=== PATIENT | female | born 1945 | race Caucasian/White ===

== ENCOUNTER → 2017-07-20 | Outpatient (CLI) | payer MEDICARE, BC ==
[2015-10-08 05:43] VITALS: BP 112/55
[~2017-07-20] MED LIST: ASPI-482 PO; CHOL100014 PO; CYAN2500 PO; FISH1CAP PO; LOSA1TAB18 PO; METO25TA9 PO; MULT-212 PO; MULT-658 PO; OXYC-323 PO; PRAS25TA PO; PRAV40TA2 PO; PREGNENOLONE PO; PROG100C15 PO; WARF1TAB74 PO; [UNRECOGNIZED DRUG - CODE] PO
--- NOTE | 2017-07-21 09:07 | RAD ---
DATE: 07/21/2017 EXAM: MAMMO HENRY SCREENING BILATERAL HISTORY: 71-year-old female for routine screening. History of left breast biopsy with benign pathology in 1979. COMPARISON: Previous mammogram from 2015 and 2014 This study was interpreted with the benefit of Computerized Aided Detection (CAD). FINDINGS: Breast Density: HETERO The breast parenchyma Is heterogeneiously dense, which could reduce sensitivity of mammography. Breast parenchyma level C. Stable scattered nodular densities in the right breast. The skin and nipples are within normal limits. No suspicious calcifications, spiculated mass or architectural distortion. IMPRESSION: No mammographic evidence of malignancy. Stable mammogram. BI-RADS CATEGORY: 2 BENIGN FINDING(S) RECOMMENDED FOLLOW-UP: 12M 12 MONTH FOLLOW-UP PQRS compliance statement: Patient information was entered into a reminder system with a target due date 07/20/2018 for the next mammogram. Mammography is a sensitive method for finding small breast cancers, but it does not detect them all and is not a substitute for careful clinical examination. A negative mammogram does not negate a clinically suspicious finding and should not result in delay in biopsying a clinically suspicious abnormality. "Our facility is accredited by the [employer] Mammography Program."
== END | disposition home or self-care (01) ==
LOC: KCIC MAMMO 14:48
PROVIDERS: ATTEND Family Medicine
DX: Z12.31 Encounter for screening mammogram for malignant neoplasm of breast (principal)
CPT/HCPCS: 77063; G0202; 77067

== ENCOUNTER → 2017-07-25 | Outpatient (CLI) | payer MEDICARE, BC ==
[2015-10-08 05:43] VITALS: BP 112/55
--- NOTE | 2017-07-26 13:56 | KCIC ---
Examination: Coronary calcium score CT chest without contrast History: Hyperlipidemia, prediabetes, hypertension, screening, family history of heart disease. Technique: With retrospective electrocardiogram gating 2.5 mm thick axial reconstructed noncontrast images of the chest at the level of the coronary arteries was performed. Images were post processed on a [employer] workstation and calcium score calculated using the modified Agatston Janowitz protocol. PQRS STATEMENT: One or more of the following in the visualized dose reduction techniques were utilized for this study: 1. Automatic exposure control, 2. Adjustment of the mA and/or kV according to patient size, 3. Use of iterative reconstruction technique Findings: Total coronary calcium score is 0.This is based on the calcium score of 0 of the left main coronary artery, 0 of the left anterior descending artery, score of 0 of the left circumflex artery and score of 0 of the right coronary artery. Noncoronary findings demonstrate a 6 mm nodule identified in the left lower lobe of the lung peripherally. A smaller 5 mm nodule identified in the left lower lobe of the lung peripherally. Impression: 1. Total calcium score is 0. 2. A 6 mm and is 5 mm nodule identified in the left lower lobe of the lung. Follow-up per Fleischner Society guidelines with follow-up CT in 6-12 months. Electronically signed by: Florencio Mills MD (07/26/2017 1:52 PM) [facility]
== END | disposition home or self-care (01) ==
LOC: KCIC CT 08:11
PROVIDERS: ATTEND Family Medicine
DX: R91.1 Solitary pulmonary nodule (principal); E78.5 Hyperlipidemia, unspecified; I10 Essential (primary) hypertension; Z82.49 Family history of ischemic heart disease and other diseases of the circulatory system
CPT/HCPCS: 75571

== ENCOUNTER → 2018-03-06 | Outpatient (CLI) | payer MEDICARE, BC | END | disposition home or self-care (01) | LOC: KCIC CT 10:13 | DX: R91.1 Solitary pulmonary nodule (principal); R91.8 Other nonspecific abnormal finding of lung field; I10 Essential (primary) hypertension; E11.9 Type 2 diabetes mellitus without complications; Z87.891 Personal history of nicotine dependence | CPT/HCPCS: 71250 ==

== ENCOUNTER → 2018-08-06 | Outpatient (CLI) | payer MEDICARE, BC ==
[2015-10-08 05:43] VITALS: BP 112/55
[~2018-08-06] MED LIST changes: -LOSA1TAB18 PO; +LOSA1TAB25 PO; +METO-239 PO; -METO25TA9 PO
--- NOTE | 2018-08-06 14:01 | KCIC ---
Bone densitometry 08/06/2018 9:38 AM Indication: LOSS OF HEIGHT, POST MENOPAUSAL, SCREENING FOR OSTEOPOROSIS Comparison Study: None available. Discussion: Bone Densitometry was performed with dual photon absorption of the lumbar spine and left proximal femur. Lumbar Spine: Bone average density is 1.1g/cm2 for L1-L4. T-Score is 0.5. Left femoral neck: Bone average density is 0.855g/cm2. T-Score is -0.7. IMPRESSION: Bone mineral density of the lumbar spine and left femoral neck are within normal limits Note: Definitions established by the World Health Organization: Normal: T-score is -1.0 or above. Osteopenia: T-score is between -1.0 and -2.5. Osteoporosis: T-score is -2.5 or below. Electronically signed by: Leo Jacobson MD (08/06/2018 1:58 PM) [facility]
== END | disposition home or self-care (01) ==
LOC: KCIC DEXA 08:44
PROVIDERS: ATTEND Family Medicine
DX: Z13.820 Encounter for screening for osteoporosis (principal); I10 Essential (primary) hypertension; E11.9 Type 2 diabetes mellitus without complications; E78.5 Hyperlipidemia, unspecified; E78.00 Pure hypercholesterolemia, unspecified; M16.11 Unilateral primary osteoarthritis, right hip; K21.9 Gastro-esophageal reflux disease without esophagitis; D25.9 Leiomyoma of uterus, unspecified; Z78.0 Asymptomatic menopausal state; Z87.891 Personal history of nicotine dependence; Z82.49 Family history of ischemic heart disease and other diseases of the circulatory system; Z80.9 Family history of malignant neoplasm, unspecified; Z79.01 Long term (current) use of anticoagulants
CPT/HCPCS: 77080

== ENCOUNTER → 2019-01-28 | Outpatient (CLI) | payer MEDICARE, BC ==
[2015-10-08 05:43] VITALS: BP 112/55
[~2019-01-28] MED LIST changes: +ACET-1550 PO; +IOHEXOL 240 MG/ML 50ML VIAL. PO ONE; +IOHEXOL 300 MG/ML 100ML VIAL. IV ONE; +LACT1CAP8 PO; +MELA3TAB2 PO; +METH-39 PO; +OXYB5TAB7 PO; -OXYC-323 PO; +OXYC1TAB15 PO; +PROG200C15 PO; +TRAM50TA PO; +compound cream TP
--- NOTE | 2019-01-28 14:17 | KCIC ---
EXAM: Left breast diagnostic mammogram; left breast sonogram. HISTORY: 73-year-old female presents for 6 month follow-up evaluation of benign-appearing lesions within the left breast demonstrated on a sonogram dated 2017. TECHNIQUE: Full-field digital craniocaudal, rolled craniocaudal, true lateral and mediolateral oblique views of the left breast are obtained for evaluation. Sonographic imaging of the left breast targeted to sites of prior concern was also performed. COMPARISON: 08/13/2018, 07/30/2018, 07/20/2017 and 07/20/2016 BREAST PARENCHYMAL DENSITY: Level C - Heterogeneously dense. FINDINGS: There is no new suspicious mass, calcification or distortion within the left breast, allowing for differences in patient positioning and compression technique. There is stable nodularity within the posterior lateral aspect of the left breast compared to studies dating to 07/20/2016. There are few benign calcifications. Sonographic imaging of the left breast demonstrates a stable lipoma at the 12:00 position 2 cm from the nipple measuring 10 mm. There is a stable 7 mm suspected complicated cyst at the 11:00 position 1 cm from the nipple. There is a stable suspected complicated cyst or focally dilated ducts at the 12:00 retroareolar location. There is no new suspicious sonographic finding. IMPRESSION: 1. No new suspicious no mammographic or sonographic finding within the left breast. 2. BI-RADS Category 2: Benign finding(s). RECOMMENDATION: The patient will be due for bilateral mammography in 6 months according to a previously established bilateral mammography interval. If your mammogram demonstrates that you have dense breast tissue, which could hide abnormalities, and if you have other risk factors for breast cancer that have been identified, you might benefit from supplemental screening tests that may be suggested by your ordering physician. Dense breast tissue, in and of itself, is a relatively common condition. This information is not provided to cause undue concern, but rather to raise your awareness and to promote discussion with your physician regarding the presence of other risk factors, in addition to dense breast tissue. A report of your mammography results will be sent to you and your physician. You should contact your physician if you have any questions or concerns regarding this report. Mammography is a sensitive method for finding small breast cancers, but it does not detect them all and is not a substitute for careful clinical examination. A negative mammogram does not negate a clinically suspicious finding and should not result in delay in biopsying a clinically suspicious abnormality. PQRS compliance statement - Patient information was entered into a reminder system with a target due date for the next mammogram. "Our facility is accredited by the [employer] Mammography Program." Electronically signed by: Beverly Wilkerson MD (01/28/2019 2:14 PM) [facility]
--- NOTE | 2019-01-28 14:19 | KCIC ---
EXAM: CT Abdomen and Pelvis with IV contrast CLINICAL HISTORY: Abdominal pain.-Right upper quadrant COMPARISON: CT chest 03/06/2018 TECHNIQUE: Helical CT of the abdomen and pelvis was performed following the administration of intravenous contrast. Axial, coronal and sagittal reformatted images were generated. PQRS compliance statement - One or more of the following individualized dose reduction techniques were utilized for this study: 1. Automated exposure control 2. Adjustment of the mA and/or kV according to patient size 3. Use of iterative reconstruction technique FINDINGS: Lower chest: Calcified granuloma right lower lobe. 4 mm left lower lobe lung nodule (series 2 image 11). Abdomen and Pelvis: Diffuse hepatic hypoattenuation may be seen with hepatic steatosis. No focal liver lesion. Gallbladder is normal. Common bile duct measures up to 9 mm in diameter. Spleen is unremarkable. Adrenal glands and pancreas are unremarkable. Symmetric nephrograms. Subcentimeter hypodense right upper pole renal lesion is too small to accurately characterize. There is mild right hydronephrosis and hydroureter. The right ureter is only seen to the level of the pelvis is streak artifact from the right hip arthroplasty limits evaluation of the distal portion of the ureter and bladder. No left hydronephrosis or hydroureter. Moderate colonic stool content is seen. Colonic diverticulosis without evidence for acute diverticulitis. No small or large bowel dilatation suggest bowel obstruction. Appendix is normal. Small fat-containing periumbilical hernia. No abdominal or pelvic ascites. No definite lymphadenopathy. Bones: Right total hip arthroplasty is seen. Degenerative changes of the spine are noted. IMPRESSION: 1. Comment mild dilation measures up to 9 mm greater than expected for this patient's age. This can be correlated with patient's lab values and if clinically indicated MRI/MRCP may provide additional details. 2. Mild right hydronephrosis and hydroureter, of uncertain clinical significance. Of note the distal right ureter to is obscured by artifact from the right hip arthroplasty. No definite calculus within the visualized renal collecting system. 3. 4 mm left lower lobe lung nodule is seen. This is stable to 03/06/2018. 4. Fatty liver 5. Colonic diverticulosis without evidence for acute diverticulitis. Electronically signed by: Hamzah Hay MD (01/28/2019 2:15 PM) [facility]
== END | disposition home or self-care (01) ==
LOC: KCIC CT 09:27
PROVIDERS: ATTEND Nurse Practitioner Family
DX: N13.39 Other hydronephrosis (principal); N13.4 Hydroureter; K76.0 Fatty (change of) liver, not elsewhere classified; R91.1 Solitary pulmonary nodule; K57.30 Diverticulosis of large intestine without perforation or abscess without bleeding; K42.9 Umbilical hernia without obstruction or gangrene; J84.10 Pulmonary fibrosis, unspecified; I10 Essential (primary) hypertension; E11.9 Type 2 diabetes mellitus without complications; R92.8 Other abnormal and inconclusive findings on diagnostic imaging of breast
CPT/HCPCS: 74177; 76641; 77065; 82565; Q9966; Q9967

== ENCOUNTER → 2019-02-11 | Outpatient (CLI) | payer MEDICARE, BC ==
[2015-10-08 05:43] VITALS: BP 112/55
[~2019-02-11] MED LIST changes: -IOHEXOL 240 MG/ML 50ML VIAL. PO ONE; -IOHEXOL 300 MG/ML 100ML VIAL. IV ONE
--- NOTE | 2019-02-11 10:16 | KCIC ---
Indication: Abnormal CT. Common bile duct dilation seen on previous CT. Right-sided abdominal pain for several months. TECHNIQUE: MRI and MRCP of the abdomen without IV contrast with MIP reconstruction. COMPARISON: CT of abdomen pelvis from 01/28/2019. FINDINGS: Heart is normal in size. No pericardial or pleural effusion. Diffuse hepatic steatosis. No abnormal T1 or T2 lesion seen in the liver. Spleen is nonenlarged. No gallstones. Layering sludge or concentrated bile is seen in the gallbladder. No pericholecystic fluid or inflammatory changes. No intra or extrahepatic biliary duct dilation. CBD measures 5 mm in diameter in the distal segment with small distal tapering without internal filling defects. Intrinsic T1 signal is preserved in the pancreas. Main pancreatic duct is nondilated. No pancreatic or peripancreatic inflammatory changes. Adrenal glands demonstrate no nodularity. 1.8 x 1.1 cm, and hepatic artery lymph node is seen. No hydronephrosis. No bowel obstruction. IMPRESSION: 1. No abnormal dilation of CBD seen. No choledocholithiasis. If there are symptoms of obstructive jaundice further evaluation with ERCP may be of additional benefit. 2. Hepatic steatosis. Electronically signed by: Perry Rizo DO (02/11/2019 10:13 AM) [facility]
== END | disposition home or self-care (01) ==
LOC: KCIC MRI 08:25
PROVIDERS: ATTEND Internal Medicine Gastroenterology
DX: K76.0 Fatty (change of) liver, not elsewhere classified (principal); K83.1 Obstruction of bile duct
CPT/HCPCS: 74181

== ENCOUNTER → 2019-02-25 | Outpatient (CLI) | payer MEDICARE, BC ==
[2015-10-08 05:43] VITALS: BP 112/55
[~2019-02-25] MED LIST changes: +SINCALIDE 1.51 MCG in IV NORMAL SALINE 50ML 30 ML IV ONE
--- NOTE | 2019-02-25 08:43 | RAD ---
Right upper quadrant abdominal ultrasound, 02/25/2019: HISTORY: Epigastric pain The gallbladder is within normal limits in size. There is no sonographic evidence of cholelithiasis. The gallbladder wall is not thickened. The common hepatic duct measures 6 mm which is at the upper limits of normal. No intrahepatic bile duct dilatation is seen. The hepatic echogenicity is generally increased, most commonly due to fatty change. No hepatic mass is evident. The visualized portions of the right kidney and pancreas are unremarkable. IMPRESSION: 1. No gallbladder abnormality is detected. 2. The common hepatic duct is at the upper limits of normal. 3. Hepatic steatosis. Electronically signed by: Lavelle Paredes MD (02/25/2019 8:40 AM) [facility]
--- NOTE | 2019-02-25 11:46 | RAD ---
Radionuclide hepatobiliary scan, 02/25/2019: HISTORY: Right upper quadrant pain Following IV injection of 5.5 mCi of technetium 99m Choletec there was prompt uptake of the radionuclide from the blood stream by the liver. Bile duct and small bowel activity is present at 5 minutes. Gallbladder activity developed at 15 minutes. Additional imaging was then performed following IV injection of 1.5 mcg of cholecystokinin. There is good gallbladder emptying with the gallbladder ejection fraction calculated at 86 percent. IMPRESSION: 1. Normal radionuclide hepatobiliary scan. 2. The gallbladder ejection fraction is 86 percent. Electronically signed by: Lavelle Paredes MD (02/25/2019 11:43 AM) [facility]
== END | disposition home or self-care (01) ==
LOC: US 14:42
PROVIDERS: ATTEND Internal Medicine Gastroenterology
DX: K76.0 Fatty (change of) liver, not elsewhere classified (principal)
CPT/HCPCS: 76705; 78227; A9537; J2805

== ENCOUNTER 2019-03-10 08:48 | Day surgery (SDC) | payer MEDICARE, BC ==
[~2019-03-10] VITALS: Ht 162.6 cm; Wt 74.8 kg
[~2019-03-10 08:48] MED LIST changes: +BUPIVAC MPF-EPI 0.5%-1:200000 30 ML VIAL. ONE; +GLUCAGON,HUMAN RECOMBINANT 1 MG/ML VIAL. ONE; +IOHEXOL 300 MG/ML 100ML VIAL. ONE; +IV RINGERS,LACTATED 1000ML 1,000 ML IV SCH; +LIDOCAINE 1% PF 2 ML VIAL. ID PRN; -MELA3TAB2 PO; +ONDANSETRON PF 4 MG/2 ML VIAL. IV PRN; +PROCHLORPERAZINE 10 MG/2 ML VIAL. IV PRN; -SINCALIDE 1.51 MCG in IV NORMAL SALINE 50ML 30 ML IV ONE; +SURGICEL HEMOSTAT 4X8 EACH. ONE; -TRAM50TA PO; +fentaNYL PF VIAL 100 MCG/2 ML VIAL IV PRN
[2019-03-10] MEDS ORDERED: ROCURONIUM 50 MG/5 ML VIAL. ONE (09:11)
[2019-03-10] MEDS ORDERED: SEVOFLURANE 61 TO 120 MINUTES. IH ONE (09:11)
[2019-03-10] MEDS ORDERED: DEXAMETHASONE SOD PHOS 20 MG/5 ML VIAL. ONE (09:11)
[2019-03-10] MEDS ORDERED: PROPOFOL 20 ML IV ONE (09:11)
[2019-03-10] MEDS ORDERED: LIDOCAINE 2% PF 5 ML VIAL. ONE (09:11)
[2019-03-10] MEDS ORDERED: ONDANSETRON PF 4 MG/2 ML VIAL. ONE (09:11)
[2019-03-10] MEDS ORDERED: fentaNYL PF VIAL 100 MCG/2 ML VIAL ONE (09:11)
[2019-03-10] MEDS ORDERED: MELA3TAB2 PO (09:19)
[2019-03-10 09:45] LABS: CREATININE 0.9 mg/dL (0.6-1.0); GFR 61.7; POTASSIUM 3.3 mmol/L (3.5-5.1)
[2019-03-10 09:51] LABS: ALBUMIN 3.9 g/dL (3.4-5.0); TOTAL BILIRUBIN 1.1 mg/dL (0.2-1.0)
[2019-03-10] MEDS ORDERED: SCOPOLAMINE 1.5MG PATCH. TD SCH (10:00)
[2019-03-10 10:10] LABS: BASO # 0.1 x10^3/uL (0.0-0.2); BASO % 1 % (0-3); EOS # 0.3 x10^3/uL (0.0-0.7); EOS % 6 % (0-3); HEMATOCRIT 39.5 % (36.0-47.0); HEMOGLOBIN 14.1 g/dL (12.0-15.5); LYMPH # 1.5 x10^3/uL (1.0-4.8); LYMPH % 26 % (24-48); MEAN CORPUSCULAR HEMOGLOBIN 30 pg (25-35); MEAN CORPUSCULAR HGB CONC 36 g/dL (31-37); MEAN CORPUSCULAR VOLUME 85 fL (79-100); MONO # 0.5 x10^3/uL (0.0-1.1); MONO % 9 % (0-9); NEUT # 3.3 x10^3uL (1.8-7.7); NEUT % 58 % (31-73); PLATELET COUNT 154 x10^3/uL (140-400); RED BLOOD COUNT 4.64 x10^6/uL (3.50-5.40); WHITE BLOOD COUNT 5.8 x10^3/uL (4.0-11.0)
[2019-03-10] MEDS ORDERED: KETOROLAC 30 MG/ML INJ FOR OR. INJ ONE (10:29)
--- NOTE | 2019-03-10 11:20 | PDOC ---
BRIEF OPERATIVE NOTE Date: Mar 10, 2019 Pre-Op Diagnosis biliary dyskinesia Post-Op Diagnosis same Procedure Performed l/s cholecystectomy Surgeon Denzel Air Dispatcher Keke COLMENARESA Anesthesia Type: General Blood Loss 10cc IV Fluid 150cc Specimens Obtained GB Findings supple GB with very small cystic duct, a few omental adhesions in the RUQ Complications none Operative Note Wk # [id number] KIRSTEN VALDES MD Mar 10, 2019 11:20
--- NOTE | 2019-03-10 11:24 | DISCH ---
DISCHARGE INSTRUCTIONS Condition on Discharge Condition on Discharge: Stable Activity After Discharge Activity Instructions for Disc: Activity as tolerated, Avoid exertion Lifting Instructions after Dis: No heavy lifting Driving Instructions after Dis: Do not drive (2-3 days) Diet after Discharge Diet after Discharge: Regular Wound Incision Care Wound/Incision Care: Ice to area for comfort, Do not change dressing Other wound/incision instructi: march shower Sunday Follow-Up Follow up with: Denzel next week Treatment/Equipment after DC Adaptive Equipment Issued: Front wheeled walker, Long handled shoe horn, Long handled sponge, Equipment Mechanic Specialist, Sock aid KIRSTEN VALDES MD Mar 10, 2019 11:24
[2019-03-10] MEDS: fentaNYL PF VIAL 100 MCG/2 ML VIAL IV PRN ×2 (11:47→11:55)
[2019-03-10] MEDS ORDERED: MORPHINE SULFATE 2 MG/ML VIAL. ONE (11:53)
[2019-03-10] MEDS ORDERED: TRAM50TA PO (12:09)
[2019-03-10] MEDS ORDERED: traMADol 50 MG TABLET ONE (12:17)
--- NOTE | 2019-03-10 12:19 | OP ---
DATE OF SURGERY: 03/10/2019 PREOPERATIVE DIAGNOSIS: Biliary dyskinesia. POSTOPERATIVE DIAGNOSIS: Biliary dyskinesia. PROCEDURE: Laparoscopic cholecystectomy. SURGEON: Chencho Valdes MD MACHINE PRECISION ETCHER: MEERA Mims ANESTHESIA: General endotracheal. BLOOD LOSS: 10. INTRAVENOUS: 150. DESCRIPTION OF PROCEDURE: The patient brought to the operating suite, given a general endotracheal anesthetic and the abdomen prepped and draped in the usual sterile fashion. An infraumbilical scar was infiltrated with local, incised and a 5 mm Visiport used to gain access safely into the abdominal cavity, avoiding injury to abdominal contents. Pneumoperitoneum established. Camera inserted and under direct vision, the epigastric, midclavicular, and lateral ports were placed after taking down some omental adhesions from the abdominal wall in the right upper quadrant with careful cautery dissection. The gallbladder was retracted superolaterally and the cystic duct and cystic artery were identified. The duct was extremely small and as such, cholangiograms were not attempted. The cystic duct was clipped x 3 and divided. Cystic artery clipped x 2 and divided and the gallbladder freed from the bed with cautery dissection and placed in an EndoCatch bag. Hemostasis in the fossa with cautery and a small piece of Surgicel. No evidence of bile leak from the fossa was seen. Table returned to level. Gallbladder delivered through the epigastric incision, which was then closed with interrupted 0 Vicryl suture. Intra-abdominal pressure decreased to 6 cm of water. No bleeding from the epigastric closure or from the midclavicular or lateral port sites after their removal. Abdomen decompressed, camera slowly removed, no bleeding seen. Skin incisions closed with subcuticular 4-0 Monocryl. Steri-Strips and sterile dressings applied. The patient was awakened from her anesthetic and taken to the recovery room in satisfactory condition. CHENCHO VALDES MD DR: DACIA/jayme JOB#: [id number] / [id number]
[2019-03-10] MEDS ORDERED: traMADol 50 MG TABLET PO ONE (12:30)
[2019-03-10 12:52] VITALS: BP 108/64
--- NOTE | 2019-03-11 15:06 | PATHOLOGY ---
[facility] Accession Number: [id number] . 01 Material submitted: . gallbladder - GALLBLADDER AND CONTENTS . 01 Clinical history: . Biliary dyskinesia . 02 Diagnosis: Gallbladder, laparoscopic cholecystectomy: - Cholesterolosis, focal. - Chronic cholecystitis. (JPM:elkin; 03/11/2019) QMS/03/11/2019 . 02 Comment: There are no calculi identified within the gallbladder lumen or specimen container. There is no evidence of malignancy. (JPM:elkin; 03/11/2019) . 02 Electronically signed: . Freedom Traore MD, Pathologist NPI- [id number] . 01 Gross description: . The specimen is received in formalin, labeled "Tim, [place], gallbladder and contents", is a disrupted, collapsed gallbladder measuring 7.0 x 3.5 x 0.7 cm with a dull, predominantly green-yellow serosa. The lumen contains scant yellow-green viscous bile and no discrete calculi. The mucosa is casarez-green and granular and the wall has an average thickness of 0.1 cm. No discrete masses are identified. Technical Instructor Course Developer tissue is submitted in A1. ([facility]; 03/10/2019) SHS/SHS . 02 Pathologist provided ICD-10: K81.1, K82.4 . 02 CPT . 402960 Specimen Comment: A courtesy copy of this report has been sent to Specimen Comment: [phone], . Specimen Comment: Report sent to / DR WALKER Performed at: 01 [facility] [address], [place], [place] [id number] MD Declan Jc MD Phone: [phone] Performed at: 02 [facility] [place] [address] [place], [place] [id number] MD Freedom Traore MD Phone: [phone]
== END 2019-03-10 13:02 | disposition home or self-care (01) ==
LOC: SURG 08:48
PROVIDERS: ATTEND Surgery
DX: K81.1 Chronic cholecystitis (principal); Z88.5 Allergy status to narcotic agent; I10 Essential (primary) hypertension; K21.9 Gastro-esophageal reflux disease without esophagitis; G47.33 Obstructive sleep apnea (adult) (pediatric); Z98.51 Tubal ligation status; Z96.641 Presence of right artificial hip joint; Z98.890 Other specified postprocedural states; Z82.49 Family history of ischemic heart disease and other diseases of the circulatory system; Z87.891 Personal history of nicotine dependence; Z72.89 Other problems related to lifestyle; Z98.42 Cataract extraction status, left eye; Z98.41 Cataract extraction status, right eye; Z96.1 Presence of intraocular lens; Z79.899 Other long term (current) drug therapy; Z79.82 Long term (current) use of aspirin
CPT/HCPCS: 36415; 47562; 80048; 82040; 82247; 85025; 88304; A7015; J0696; J0780; J1100; J1885; J2001; J2270; J2405; J2704; J3010; J3490; J7030; Q9967; J1610

== ENCOUNTER → 2019-08-01 | Outpatient (CLI) | payer MEDICARE, BC ==
[~2019-08-01] MED LIST changes: -BUPIVAC MPF-EPI 0.5%-1:200000 30 ML VIAL. ONE; -GLUCAGON,HUMAN RECOMBINANT 1 MG/ML VIAL. ONE; -IOHEXOL 300 MG/ML 100ML VIAL. ONE; -IV RINGERS,LACTATED 1000ML 1,000 ML IV SCH; -LIDOCAINE 1% PF 2 ML VIAL. ID PRN; +MELA3TAB56 PO; -ONDANSETRON PF 4 MG/2 ML VIAL. IV PRN; -PROCHLORPERAZINE 10 MG/2 ML VIAL. IV PRN; -SURGICEL HEMOSTAT 4X8 EACH. ONE; +TRAM50TA PO; -fentaNYL PF VIAL 100 MCG/2 ML VIAL IV PRN
--- NOTE | 2019-08-01 19:29 | KCIC ---
Bilateral digital screening mammograms: Reason for examination: Routine screening. Comparison is made to previous studies dated 07/30/2018 and 07/20/2017. Interpretation was made with the benefit of CAD. The skin and nipples show no abnormalities. No abnormal axillary lymph nodes are seen. The breast parenchyma is heterogeneously dense. (Breast density: Category C.) There continues to be a small nodular density posterior laterally in the right breast seen only on cc view which is stable. There are no new dominant masses, suspicious calcifications or architectural distortion. Impression: No evidence of malignancy. Recommend routine screening. Your patient's mammogram demonstrates that she has dense breast tissue (breast density category C or D), which could hide abnormalities, and if she has other risk factors for breast cancer that have been identified, she might benefit from supplemental screening tests that may be suggested by you as her ordering physician. Dense breast tissue, in and of itself, is a relatively common condition. Therefore, this information is not provided to cause undue concern, but rather to raise your awareness and to promote discussion with your patient regarding the presence of other risk factors, in addition to dense breast tissue. Your patient's mammography results will be sent to her. BI-RAD Category 2: Benign. "Our facility is accredited by the [employer] Mammography Program." This patient's information has been entered into a reminder system for the patient to be notified with the results of her examination and a target date for the next mammogram. Electronically signed by: Monique Bernard MD (08/01/2019 4:34 PM) [facility]
== END | disposition home or self-care (01) ==
LOC: KCIC MAMMO 09:18
PROVIDERS: ATTEND Family Medicine
DX: Z12.31 Encounter for screening mammogram for malignant neoplasm of breast (principal)
CPT/HCPCS: 77067

== ENCOUNTER → 2020-08-17 | Outpatient (CLI) | payer MEDICARE, BC ==
[~2020-08-17] MED LIST changes: -ACET-1550 PO; +ACET-1797 PO; +MELA3TAB4 PO; -MELA3TAB56 PO; +OXYB5TAB10 PO; -OXYB5TAB7 PO; +WARF1TAB2 PO; -WARF1TAB74 PO
--- NOTE | 2020-08-17 16:44 | KCIC ---
Examination: CT LOW DOSE LUNG SCREENING History: Reason: Lung cancer screening / Spl. Instructions: / History: Former smoker of 30 yrs., 1.5 pk/day. 45 pack-year smoking history. Comparison/Correlation: 01/28/2019 CT abdomen and pelvis with contrast Findings: Axial images of the chest were obtained without contrast and according to low dose lung has a screening CT protocol. Calcified granulomas involving the right lung base are present. Left posterior basilar 0.4 cm diameter nodule with central calcification is present. Nodule in the left lateral lower lung field level on axial image 46 measures less than 0.4 cm diameter. Possibility of subtle hyperdensity as would be expected of calcification within this lesion is noted. These remain stable. Tracheobronchial tree is unremarkable. No infiltrate or effusion. No pleural or pericardial effusion. No enlarged thoracic lymph nodes. Small hiatal hernia is present. Cholecystectomy noted. Bony structures are unremarkable. Impression: Lung rads Category 2-benign. No suspicious nodules or suspicious infiltrates. Small hiatal hernia. PQRS Compliance Statement: One or more of the following individualized dose reduction techniques were utilized for this examination: 1. Automated exposure control 2. Adjustment of the mA and/or kV according to patient size 3. Use of iterative reconstruction technique Electronically signed by: Kevin Murray MD (08/17/2020 4:40 PM) [id number]
--- NOTE | 2020-08-18 09:21 | KCIC ---
Bilateral digital screening mammograms: Reason for examination: Routine screening. Comparison is made to previous studies dated back to 07/20/2016. The skin and nipples show no abnormalities. No abnormal axillary lymph nodes are seen. The breast parenchyma is heterogeneously dense. (Breast density: Category C.) There appears to be a new 8.5 mm circumscribed nodule posterior superiorly in the right breast on oblique view but probably located within some dense fibroglandular tissue posterior laterally on cc view. Further evaluation with ultrasound is recommended. There are no other dominant masses, suspicious calcifications or architectural distortion. Impression: Small 8.5 mm nodule seen posterior superiorly in the right breast on oblique view probably in the upper outer quadrant. Recommend further evaluation with ultrasound. Your patient's mammogram demonstrates that she has dense breast tissue (breast density category C or D), which could hide abnormalities, and if she has other risk factors for breast cancer that have been identified, she might benefit from supplemental screening tests that may be suggested by you as her ordering physician. Dense breast tissue, in and of itself, is a relatively common condition. Therefore, this information is not provided to cause undue concern, but rather to raise your awareness and to promote discussion with your patient regarding the presence of other risk factors, in addition to dense breast tissue. Your patient's mammography results will be sent to her. BI-RAD Category 0: Incomplete. Needs additional imaging evaluation. "Our facility is accredited by the [employer] Mammography Program." This patient's information has been entered into a reminder system for the patient to be notified with the results of her examination and a target date for the next mammogram. Electronically signed by: Monique Bernard MD (08/18/2020 9:18 AM) [id number]
== END | disposition home or self-care (01) ==
LOC: KCIC CT 10:10
PROVIDERS: ATTEND Family Medicine
DX: Z12.31 Encounter for screening mammogram for malignant neoplasm of breast (principal); Z12.2 Encounter for screening for malignant neoplasm of respiratory organs; Z87.891 Personal history of nicotine dependence; R91.1 Solitary pulmonary nodule; J94.8 Other specified pleural conditions
CPT/HCPCS: 77067; G0297

== ENCOUNTER → 2021-07-21 | Outpatient (CLI) | payer MEDICARE, BC ==
--- NOTE | 2021-07-21 15:51 | KCIC ---
CT of the chest without contrast 07/21/2021 INDICATION: Lung nodule follow-up. COMPARISON STUDY: CT of the chest without contrast August 17, 2020 TECHNIQUE: CT imaging of the chest was performed without contrast. FINDINGS: Heart size is no pericardial effusion is identified. Limited noncontrast enhanced evaluatio n of the mediastinum demonstrates no pathologically enlarged mediastinal lymph nodes. Apical scarring , right greater than left, is unchanged. Similar to comparison studies scattered calcified and noncal cified subcentimeter pulmonary nodules are noted bilaterally. These nodules are unchanged in size in the interim between studies. No new concerning nodules or masses are identified. No focal infiltrates are seen. Identified. Limited visualization of the upper abdomen is unremarkable. No acute osseous c hanges are identified. IMPRESSION: 1. No evidence of acute cardiopulmonary process. 2. Stable scattered calcified noncalcified pulmonary nodules, which given stability over time favors a benign etiology. Recommend annual low-dose lung cancer screening annually, as clinically indicated. CT DOSING PQRS STATEMENT: One or more of the following individualized dose reduction techniques were utilized for this examinat ion: 1. Automated exposure control 2. Adjustment of the mA and/or kV according to patient size 3. Use of iterative reconstruction technique Electronically signed by: Leo Jacobson MD (07/21/2021 3:49 PM) [id number]
== END ==
LOC: KCIC CT 13:37
PROVIDERS: ATTEND Family Medicine
DX: R91.8 Other nonspecific abnormal finding of lung field (principal); F17.290 Nicotine dependence, other tobacco product, uncomplicated
CPT/HCPCS: 71250

== ENCOUNTER → 2021-08-24 | Outpatient (CLI) | payer MEDICARE, BC ==
--- NOTE | 2021-08-24 10:14 | KCIC ---
Diagnostic Digital Mammogram Bilateral History: Follow-up of the small nodules seen upper posterior right breast on the MLO view last year. Technique: 2-D digital CC and MLO views were obtained. CAD - computer aided detection was utilize d. Comparison: Mammograms from 08/17/2020 and 08/01/2019. .. Findings: Breast tissue density: Category C. There is heterogeneously dense fibroglandular tissue, which may ob scure small masses. There are no suspicious masses, malignant appearing calcifications, or areas of architectural distort ion.The previously noted area of nodularity in the right breast posteriorly seen on the MLO view appe ars smaller. There is mild nodularity breast tissue which is otherwise unchanged Impression: No evidence of malignancy. Assessment: BI-RADS Category 2. Benign findings. Recommendations: Routine screening mammogram.. The patient was given results the time of the exam and will receive a letter with the results in the mail. Patient information will be entered into the mammography reminder system with a target recall d ate for the next mammogram. A reminder letter will be generated. Your patient's mammogram demonstrates that she has dense breast tissue (breast density category C or D), which could hide abnormalities, and if she has other risk factors for breast cancer that have bee n identified, she might benefit from supplemental screening tests that may be suggested by you as her ordering physician. Dense breast tissue, in and of itself, is a relatively common condition. Therefo re, this information is not provided to cause undue concern, but rather to raise your awareness and t o promote discussion with your patient regarding the presence of other risk factors, in addition to d ense breast tissue. Electronically signed by: Blank Dumont MD (08/24/2021 10:12 AM) [id number]
== END ==
LOC: KCIC MAMMO 09:28
PROVIDERS: ATTEND Family Medicine
DX: R92.8 Other abnormal and inconclusive findings on diagnostic imaging of breast (principal)
CPT/HCPCS: 77066

== ENCOUNTER → 2021-09-14 | Outpatient (CLI) | payer MEDICARE, BC ==
[~2021-09-14] MED LIST changes: +IOHEXOL 240 MG/ML 50ML VIAL. PO ONE; +IOHEXOL 300 MG/ML 100ML VIAL. IV ONE
--- NOTE | 2021-09-14 17:05 | KCIC ---
Exam: CT abdomen/pelvis with intravenous contrast Indication: Abdominal pain, abnormal LFTs, heartburn Comparison: None Technique: Helical CT imaging performed of the abdomen and pelvis after the intravenous administratio n of 100 mL Omnipaque 300 contrast. Sagittal and coronal reformats were obtained. One or more of the following individualized dose reduction techniques were utilized for this examinat ion: 1. Automated exposure control 2. Adjustment of the mA and/or kV according to patient size 3. Use of iterative reconstruction technique. Findings: Lower chest: There is a calcified granuloma in the right lower lobe. Unchanged 3 mm nodule in the lef t lower lobe. Heart is normal in size. Liver: There is hepatic steatosis. Liver is normal in size measuring 17 cm in length. No focal lesion s. Gallbladder/Biliary Tree: Gallbladder surgically absent. Common bile duct is prominent proximally but tapers distally, unchanged and likely sequela of cholecystectomy. Pancreas: Normal. Spleen: Normal. Adrenal Glands: Normal. Kidneys/Ureters/Bladder: The kidneys are normal in size and enhance symmetrically. Flow to the right renal pelvis is unchanged and may be due to extrarenal pelvis. The visualized portion of the right ur eter is normal. Left ureter is normal. Distal right ureter and bladder are mostly obscured by artifac t from right hip prosthesis. Reproductive Organs: Uterus is anteverted. No adnexal mass. Stomach, small bowel, and colon: Small hiatal hernia. There is no small bowel obstruction. Colon is u nremarkable. Appendix is not visualized. Vasculature: Mild aortic atherosclerosis. Aortic aneurysm. Lymph Nodes: There is no lymphadenopathy. Peritoneum and retroperitoneum: No free fluid or free air. 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 Pr obable bone island in the supra-acetabular left iliac bone, unchanged. Increased sclerosis of the pub ic symphysis likely due to osteitis pubis. Impression: 1. Unchanged hepatic steatosis. 2. Post cholecystectomy. Unchanged appearance of the bile ducts. 3. Unchanged 3 mm nodule in the left lower lobe. Electronically signed by: Clarita Khoury MD (09/14/2021 5:03 PM) [facility]
== END ==
LOC: KCIC CT 13:14
PROVIDERS: ATTEND Family Medicine
DX: K76.0 Fatty (change of) liver, not elsewhere classified (principal); K44.9 Diaphragmatic hernia without obstruction or gangrene; R94.5 Abnormal results of liver function studies; J84.10 Pulmonary fibrosis, unspecified; R91.1 Solitary pulmonary nodule; I70.0 Atherosclerosis of aorta; I71.9 Aortic aneurysm of unspecified site, without rupture; M16.12 Unilateral primary osteoarthritis, left hip; Z90.49 Acquired absence of other specified parts of digestive tract; Z96.641 Presence of right artificial hip joint
CPT/HCPCS: 74177; 82565; Q9966; Q9967